=== PATIENT | female | born 1995 | race American Indian/Alaskan Native ===

== ENCOUNTER 2021-10-17 14:56 | Emergency (ER) | payer MEDICAID ==
[2021-10-17] MEDS ORDERED: ZIPRASIDONE MESYLATE 20 MG VIAL IM ONE (17:28)
[2021-10-17] MEDS ORDERED: WATER FOR INJ Sterile (PF) 10 ML ONE (17:29)
[2021-10-17 18:18] LABS: Hematocrit 35.6 % (30.3-42.9); Hemoglobin 12.4 gm/dl (10.1-14.3); Mean Corpuscular HGB Conc 35 % (30-34); Mean Corpuscular Volume 90 fl (79-97); Platelet Count 242 K/mm3 (140-440); Red Blood Count 3.96 M/mm3 (3.65-5.03); Red Cell Distribution Width 13.5 % (13.2-15.2)
[2021-10-17 19:08] LABS: BUN/Creatinine Ratio 11; Blood Urea Nitrogen 11 mg/dL (7-17); Calcium 9.8 mg/dL (8.4-10.2); Hemolysis Index 6
[2021-10-17 20:09] LABS: Bilirubin,Urine NEG (Negative); Blood,Urine MOD (Negative); Color,Urine Yellow (Yellow); Mucus,Urine FEW /HPF; Protein,Urine <15 mg/dL mg/dL (Negative); Urobilinogen,Urine < 2.0 mg/dL (<2.0)
[2021-10-17 20:18] LABS: Amphetamine Screen,Urine Negative; Benzodiazepines Screen,Urine Negative; Cannabinoid Screen,Urine Negative; Cocaine Screen,Urine Negative; Methadone Screen,Urine Negative; Opiate Screen,Urine Negative
[2021-10-17 22:28] LABS: Basophils % (Manual) 0 % (0.0-1.8); Eosinophils % (Manual) 0 % (0.0-4.3); Total Cells Counted 100
[2021-10-17 22:29] LABS: Platelet Estimate Consistent w Auto; RBC Morphology Normal
--- NOTE | 2021-10-18 00:11 | Emergency Department Report ---
ED Psych HPI - General Chief Complaint: Psych Stated Complaint: SI Time Seen by Provider: 10/17/21 17:28 Source: EMS Mode of arrival: Stretcher - History of Present Illness Initial Comments: Pt brought in by EMS with c/o SI/HO without plan MD Complaint: suicidal ideation, feels depressed -: days(s) Associated Psychiatric Symptoms: suicidal ideation History of same: No Quality: intermittent Improves With: none Worsens With: none - Related Data Home Medications Medication Instructions Recorded Confirmed Last Taken OLANZapine 20 mg PO DAILY 05/12/16 05/12/16 Unknown metFORMIN 500 mg PO BID 05/12/16 05/12/16 Unknown Allergies Allergy/AdvReac Type Severity Reaction Status Date / Time aripiprazole [From Abilify] Allergy Unknown Verified 01/17/16 08:15 shellfish derived Allergy Itching Verified 05/25/13 21:25 haloperidol [From Haldol] AdvReac Unknown Verified 07/19/15 21:44 haloperidol lactate AdvReac Unknown Verified 07/19/15 21:44 [From Haldol] lorazepam [From Ativan] AdvReac Unknown Verified 07/19/15 21:44 ED Review of Systems ROS: Stated complaint: SI Other details as noted in HPI Constitutional: denies: chills, fever Eyes: denies: eye pain, eye discharge, vision change ENT: denies: ear pain, throat pain Respiratory: denies: cough, shortness of breath, wheezing Cardiovascular: denies: chest pain, palpitations Endocrine: no symptoms reported Gastrointestinal: denies: abdominal pain, nausea, diarrhea Genitourinary: denies: urgency, dysuria, discharge Musculoskeletal: denies: back pain, joint swelling, arthralgia Skin: denies: rash, lesions Neurological: denies: headache, weakness, paresthesias Psychiatric: denies: anxiety, depression Hematological/Lymphatic: denies: easy bleeding, easy bruising ED Past Medical Hx - Past Medical History Hx Diabetes: Yes Hx Psychiatric Treatment: Yes (Bipolar/Schizophrenia/OCD) Additional medical history: bipolar/schizo/ocd - Surgical History Additional Surgical History: KIMBERLEY - Social History Smoking Status: Current Every Day Smoker Substance Use Type: Alcohol - Medications Home Medications: Home Medications Medication Instructions Recorded Confirmed Last Taken Type OLANZapine 20 mg PO DAILY 05/12/16 05/12/16 Unknown History metFORMIN 500 mg PO BID 05/12/16 05/12/16 Unknown History ED Physical Exam - General Limitations: No Limitations General appearance: alert, anxious - Head Head exam: Present: atraumatic, normocephalic - Eye Eye exam: Present: normal appearance - ENT ENT exam: Present: mucous membranes moist - Neck Neck exam: Present: normal inspection - Respiratory Respiratory exam: Present: normal lung sounds bilaterally. Absent: respiratory distress - Cardiovascular Cardiovascular Exam: Present: regular rate, normal rhythm. Absent: systolic murmur, diastolic murmur, rubs, gallop - GI/Abdominal GI/Abdominal exam: Present: soft, normal bowel sounds - Extremities Exam Extremities exam: Present: normal inspection - Back Exam Back exam: Present: normal inspection - Neurological Exam Neurological exam: Present: alert, oriented X3 - Psychiatric Psychiatric exam: Present: anxious, suicidal ideation - Skin Skin exam: Present: warm, dry, intact, normal color. Absent: rash ED Course Vital Signs 10/17/21 10/17/21 10/17/21 15:30 17:43 20:06 Temperature 98.4 F 98.3 F Pulse Rate 104 H 66 Respiratory 18 16 Rate Blood Pressure 123/66 138/83 [Right] O2 Sat by Pulse 98 98 98 Oximetry 10/18/21 14:13 Temperature 98.2 F Pulse Rate 80 Respiratory 18 Rate Blood Pressure 125/79 [Right] O2 Sat by Pulse 100 Oximetry ED Medical Decision Making - Lab Data Result diagrams: 10/17/21 17:51 10/17/21 17:51 Critical care attestation.: If time is entered above; I have spent that time in minutes in the direct care of this critically ill patient, excluding procedure time. ED Disposition Clinical Impression: Suicidal ideation Disposition: [address] [place] [address] Is pt being admited?: No Does the pt Need Aspirin: No Condition: Stable Referrals: THIAGO CORLEY MD [Primary Care Provider] - 3-5 Days
[2021-10-18] MEDS ORDERED: ZIPRASIDONE MESYLATE 20 MG VIAL IM ONE ×2 (10:09→16:10)
--- NOTE | 2021-10-18 10:45 | Consultation ---
History of Present Illness - Reason for Consult Consult date: 10/18/21 Reason for consult: Suicidal - History of Present Psychiatric Illness The patient is a 26 year old female with history of schizophrenia, and bipolar who presents to the ED with suicidal ideation. The patient was seen pacing and responding to internal stimuli. When asked why she came to the ED, the patient presents with inaudible mumble. The patient is not engaging with this telegraphic typewriter mechanic. PAST PSYCHIATRIC HISTORY: PAST MEDICAL HISTORY: None reported or document Family Psychiatric History: None reported or documented SOCIAL HISTORY REVIEW OF SYSTEMS Constitutional: Negative for weight loss ENT: Negative for stridor Respiratory: Negative for cough or hemoptysis All other systems reviewed and are negative MENTAL STATUS EXAMINATION Diagnoses: Schizophrenia Treatment Plan Continue Zyprexa 5mg po bid Trazodone 50mg po QHS PSYCHOTHERAPY: Supportive psychotherapy provided MEDICAL: Per primary team DELIRIUM PRECAUTIONS: Please re-orient patient frequently, keep lights on during the day, and minimize benzodiazepines and opiates as these medications could worsen patient's confusion. 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 Will follow. Thank you for the consult. Case staffed with Dr. Desai Medications and Allergies Medications and Allergies Allergies Allergy/AdvReac Type Severity Reaction Status Date / Time aripiprazole [From Abilify] Allergy Unknown Verified 01/17/16 08:15 shellfish derived Allergy Itching Verified 05/25/13 21:25 haloperidol [From Haldol] AdvReac Unknown Verified 07/19/15 21:44 haloperidol lactate AdvReac Unknown Verified 07/19/15 21:44 [From Haldol] lorazepam [From Ativan] AdvReac Unknown Verified 07/19/15 21:44 Home Medications Medication Instructions Recorded Confirmed Last Taken Type OLANZapine 20 mg PO DAILY 05/12/16 05/12/16 Unknown History metFORMIN 500 mg PO BID 05/12/16 05/12/16 Unknown History Mental Status Exam - Vital signs Last Vital Signs Temp 98.3 F 10/17/21 20:06 Pulse 66 10/17/21 20:06 Resp 16 10/17/21 20:06 BP 138/83 10/17/21 20:06 Pulse Ox 98 10/17/21 20:06 Results Result Diagrams: 10/17/21 17:51 10/17/21 17:51 Abnormal lab results 10/17/21 10/17/21 10/17/21 Range/Units 17:51 17:51 17:51 MCHC 35 H (30-34) % Salicylates < 0.3 L (2.8-20.0) mg/dL Acetaminophen 5.0 L (10.0-30.0) ug/mL All other labs normal.
--- NOTE | 2021-10-18 12:12 | Event Note ---
Date: 10/18/21 Diagnoses: Schizophrenia Treatment Plan Continue Zyprexa 5mg po bid Trazodone 50mg po QHS PSYCHOTHERAPY: Supportive psychotherapy provided MEDICAL: Per primary team DELIRIUM PRECAUTIONS: Please re-orient patient frequently, keep lights on during the day, and minimize benzodiazepines and opiates as these medications could worsen patient's confusion. 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 Will follow. Thank you for the consult. Case staffed with Dr. Desai I have seen the patient myself and appreciate psychiatric recommendation. Patient remained hemodynamically stable and afebrile.
[2021-10-18] MEDS: traZODone 50 MG TAB PO SCH (22:00)
[2021-10-19] MEDS ORDERED: ZIPRASIDONE MESYLATE 20 MG VIAL IM ONE (05:35)
--- NOTE | 2021-10-19 11:06 | Progress Note ---
Subjective - Reason for Consult Consult date: 10/19/21 Reason for consult: suicidal ideation - Chief Complaint Chief complaint: The patient was seen this morning. She continues to endorse depression and suicidal ideation with no plan. PAST PSYCHIATRIC HISTORY: PAST MEDICAL HISTORY: None reported or document Family Psychiatric History: None reported or documented SOCIAL HISTORY REVIEW OF SYSTEMS Constitutional: Negative for weight loss ENT: Negative for stridor Respiratory: Negative for cough or hemoptysis All other systems reviewed and are negative MENTAL STATUS EXAMINATION Diagnoses: Schizophrenia Treatment Plan Continue 1013 Zyprexa 5mg po bid Trazodone 50mg po QHS PSYCHOTHERAPY: Supportive psychotherapy provided MEDICAL: Per primary team DELIRIUM PRECAUTIONS: Please re-orient patient frequently, keep lights on during the day, and minimize benzodiazepines and opiates as these medications could worsen patient's confusion. 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 Will follow. Thank you for the consult. Case staffed with Dr. Desai Medications and Allergies Mental Status Exam - Vital signs Last Vital Signs Temp 99.3 F 10/18/21 19:53 Pulse 77 10/18/21 19:53 Resp 16 10/18/21 19:53 BP 143/86 10/18/21 19:53 Pulse Ox 100 10/18/21 20:13
--- NOTE | 2021-10-19 11:44 | Emergency Department Report ---
Blank Doc - Documentation Documentation: S: Patient reportedly pacing and experiencing auditory hallucinations this gypsy mathews. No other events reported overnight O: Vital Signs - 24 hr 10/18/21 10/18/21 10/18/21 14:13 19:53 20:13 Temperature 98.2 F 99.3 F Pulse Rate 80 77 Respiratory 18 16 Rate Blood Pressure 125/79 143/86 [Right] O2 Sat by Pulse 100 98 100 Oximetry 10/19/21 10/19/21 09:00 11:29 Temperature 97.8 F Pulse Rate 64 64 Respiratory 18 18 Rate Blood Pressure 104/64 104/64 [Right] O2 Sat by Pulse 99 100 Oximetry 8: Schizophrenia PE: 1013/awaiting inpatient psych
[2021-10-19] MEDS: ZIPRASIDONE MESYLATE 20 MG VIAL IM PRN (11:45)
[2021-10-19] MEDS ORDERED: DIVALPROEX DR 250 MG TAB PO SCH (12:00)
--- NOTE | 2021-10-20 10:17 | Progress Note ---
Subjective - Reason for Consult Consult date: 10/20/21 Reason for consult: suicidal - Chief Complaint Chief complaint: The patient was seen this morning. She is labile; she was observed making loud and weird sounds. PAST PSYCHIATRIC HISTORY: PAST MEDICAL HISTORY: None reported or document Family Psychiatric History: None reported or documented SOCIAL HISTORY REVIEW OF SYSTEMS Constitutional: Negative for weight loss ENT: Negative for stridor Respiratory: Negative for cough or hemoptysis All other systems reviewed and are negative MENTAL STATUS EXAMINATION Diagnoses: Schizophrenia Treatment Plan Continue 1013 Zyprexa 10mg po bid Depakote 500mg po BID Trazodone 50mg po QHS PSYCHOTHERAPY: Supportive psychotherapy provided MEDICAL: Per primary team DELIRIUM PRECAUTIONS: Please re-orient patient frequently, keep lights on during the day, and minimize benzodiazepines and opiates as these medications could worsen patient's confusion. PLANT SCIENTIST: Per medical team DISPOSITION: Recommend acute psychiatric inpatient treatment. Will follow. Thank you for the consult. Case staffed with Dr. Desai Medications and Allergies Mental Status Exam - Vital signs Last Vital Signs Temp 98.2 F 10/20/21 10:12 Pulse 89 10/20/21 10:12 Resp 20 10/20/21 10:12 BP 123/62 10/20/21 10:12 Pulse Ox 98 10/20/21 10:12
[2021-10-20] MEDS: DIVALPROEX DR 500 MG TAB PO SCH ×2 (11:18→22:00)
--- NOTE | 2021-10-20 12:52 | Emergency Department Report ---
Blank Doc - Documentation Documentation: A: No events reported overnight O: Vital Signs - 8 hr 10/20/21 10/20/21 10:12 10:18 Temperature 98.2 F Pulse Rate 89 Respiratory 20 Rate Blood Pressure 123/62 [Right] O2 Sat by Pulse 98 99 Oximetry A: Schizophrenia PE: 1013/awaiting inpatient psych
[2021-10-20] MEDS: ZIPRASIDONE MESYLATE 20 MG VIAL IM PRN (18:22)
[2021-10-20] MEDS: diphenhydrAMINE 50 MG/ML VIAL IM PRN (19:27)
[2021-10-20] MEDS: LORazepam 2 MG/ML VIAL IM PRN (19:28)
[2021-10-20] MEDS: traZODone 50 MG TAB PO SCH (22:00)
[2021-10-21] MEDS: DIVALPROEX DR 500 MG TAB PO SCH (09:42)
--- NOTE | 2021-10-21 11:48 | Event Note ---
Date: 10/21/21 (11:48 am) S: patient here / having suicidal ideations. Patient seen by psych and inpatient psych admission recommended. No issues overnight.No new complaints this morning. O: Gen: pt in nad; awake, alert HEENT: MMM; airway patent Chest: good air entry, nmnl I:E, CTAB, no use of DEVANG Heart: RRR; no rub or gallop Ext: no LE edema; non tender calves; neg Rocio's sign bilaterally A/P: - Suicidal ideations - continue current management - inpatient psych transfer upon acceptance.
--- NOTE | 2021-10-21 12:41 | Progress Note ---
Subjective - Reason for Consult Consult date: 10/21/21 Reason for consult: SI - Chief Complaint Chief complaint: The patient was seen this morning. She was sen pacing, mumbling and responding to internal stimuli. PAST PSYCHIATRIC HISTORY: PAST MEDICAL HISTORY: None reported or document Family Psychiatric History: None reported or documented SOCIAL HISTORY REVIEW OF SYSTEMS Constitutional: Negative for weight loss ENT: Negative for stridor Respiratory: Negative for cough or hemoptysis All other systems reviewed and are negative MENTAL STATUS EXAMINATION Diagnoses: Schizophrenia Treatment Plan Continue 1013 Zyprexa 10mg po bid Depakote 500mg po BID Trazodone 50mg po QHS PSYCHOTHERAPY: Supportive psychotherapy provided MEDICAL: Per primary team DELIRIUM PRECAUTIONS: Please re-orient patient frequently, keep lights on during the day, and minimize benzodiazepines and opiates as these medications could worsen patient's confusion. SENIOR REPORT DEVELOPER: Per medical team DISPOSITION: Recommend acute psychiatric inpatient treatment. Will follow. Thank you for the consult. Case staffed with Dr. Desai Medications and Allergies Mental Status Exam - Vital signs Last Vital Signs Temp 99.1 F 10/21/21 07:45 Pulse 95 H 10/21/21 07:45 Resp 16 10/21/21 07:45 BP 134/79 10/21/21 07:45 Pulse Ox 99 10/21/21 07:45
--- NOTE | 2021-10-22 10:57 | Progress Note ---
Subjective - Reason for Consult Consult date: 10/22/21 Reason for consult: psychosis - Chief Complaint Chief complaint: The patient was seen this morning. She continues to present with disorganized thoughts. PAST PSYCHIATRIC HISTORY: PAST MEDICAL HISTORY: None reported or document Family Psychiatric History: None reported or documented SOCIAL HISTORY REVIEW OF SYSTEMS Constitutional: Negative for weight loss ENT: Negative for stridor Respiratory: Negative for cough or hemoptysis All other systems reviewed and are negative MENTAL STATUS EXAMINATION Diagnoses: Schizophrenia Treatment Plan Continue 1013 Zyprexa 10mg po bid Depakote 500mg po BID Trazodone 50mg po QHS PSYCHOTHERAPY: Supportive psychotherapy provided MEDICAL: Per primary team DELIRIUM PRECAUTIONS: Please re-orient patient frequently, keep lights on during the day, and minimize benzodiazepines and opiates as these medications could worsen patient's confusion. 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 Will follow. Thank you for the consult. Case staffed with Dr. Desai Medications and Allergies Mental Status Exam - Vital signs Last Vital Signs Temp 98.9 F 10/22/21 09:25 Pulse 78 10/22/21 09:25 Resp 20 10/22/21 09:25 BP 124/70 10/22/21 09:25 Pulse Ox 100 10/22/21 09:25
--- NOTE | 2021-10-22 13:54 | Event Note ---
Date: 10/22/21 (13:53) S: patient here / having suicidal ideations. Patient seen by psych and inpatient psych admission recommended. No issues overnight.No new complaints this morning. O: Gen: pt in nad; awake, alert HEENT: MMM; airway patent Chest: good air entry, nmnl I:E, CTAB, no use of DEVANG Heart: RRR; no rub or gallop Ext: no LE edema; non tender calves bilaterally A/P: - Suicidal ideations - continue current management - inpatient psych transfer upon acceptance.
[2021-10-22] MEDS: LORazepam 2 MG/ML VIAL IM PRN (14:17)
[2021-10-22] MEDS: ZIPRASIDONE MESYLATE 20 MG VIAL IM PRN ×2 (14:17→21:04)
[2021-10-22] MEDS: diphenhydrAMINE 50 MG/ML VIAL IM PRN (21:03)
[2021-10-22] MEDS: traZODone 50 MG TAB PO SCH (23:05)
[2021-10-22] MEDS: DIVALPROEX DR 500 MG TAB PO SCH (23:05)
--- NOTE | 2021-10-23 09:10 | Progress Note ---
Subjective Date of service: 10/23/21 Principal diagnosis: Schizophrenia Subjective Comment: The patient was seen today. She is in the seclusion room. She is awake. She is responding to internal stimuli. She is acting bizarrely. She is staring at me moving her mouth, but no words are coming out. I ask her if she can speak, she continues to move her mouth as if she's speaking. The nurse note states the patient is running the hallway and talking loudly, and having auditory hallucinations. Will increase trazodone to induce sleep. Will also start prn geodon for agitation and if refusal of oral antipsychotic. REVIEW OF SYSTEMS Unable to assess MENTAL STATUS EXAMINATION Unable to assess Diagnoses Schizophrenia Treatment Plan 1013 Zyprexa 10mg po bid Depakote 500mg po BID Increase Trazodone 75mg po QHS Start Geodon 20mg IM q6h prn agitation and refusal of po antipsychotic PSYCHOTHERAPY: Supportive psychotherapy provided MEDICAL: Per primary team DELIRIUM PRECAUTIONS: Please re-orient patient frequently, keep lights on during the day, and minimize benzodiazepines and opiates as these medications could worsen patient's confusion. 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 Will follow. Thank you for the consult. Case staffed with Dr. Desai Medications and Allergies Allergies Allergy/AdvReac Type Severity Reaction Status Date / Time aripiprazole [From Abilify] Allergy Unknown Verified 01/17/16 08:15 shellfish derived Allergy Itching Verified 05/25/13 21:25 haloperidol [From Haldol] AdvReac Unknown Verified 07/19/15 21:44 haloperidol lactate AdvReac Unknown Verified 07/19/15 21:44 [From Haldol] lorazepam [From Ativan] AdvReac Unknown Verified 07/19/15 21:44 Home Medications Medication Instructions Recorded Confirmed Last Taken Type OLANZapine 20 mg PO DAILY 05/12/16 05/12/16 Unknown History metFORMIN 500 mg PO BID 05/12/16 05/12/16 Unknown History Active Meds: Active Medications Diphenhydramine HCl (Diphenhydramine 50 Mg/Ml Vial) 50 mg IM Q6H PRN PRN Reason: Agitation Last Admin: 10/22/21 21:03 Dose: 50 mg Divalproex Sodium (Divalproex Dr 500 Mg Tab) 500 mg PO BID GEOVANNI Last Admin: 10/22/21 23:05 Dose: Not Given Lorazepam (Lorazepam 2 Mg/Ml Vial) 2 mg IM Q8H PRN PRN Reason: Agitation Last Admin: 10/22/21 14:17 Dose: 2 mg Olanzapine (Olanzapine 10 Mg Tab) 10 mg PO BID [facility] Last Admin: 10/22/21 23:05 Dose: Not Given Trazodone HCl (Trazodone 50 Mg Tab) 50 mg PO QHS [facility] Last Admin: 10/22/21 23:05 Dose: Not Given Results - Results Labs/Vitals: Laboratory Last Values WBC 9.7 K/mm3 (4.5-11.0) 10/17/21 17:51 RBC 3.96 M/mm3 (3.65-5.03) 10/17/21 17:51 Hgb 12.4 gm/dl (10.1-14.3) 10/17/21 17:51 Hct 35.6 % (30.3-42.9) 10/17/21 17:51 MCV 90 fl (79-97) 10/17/21 17:51 MCH 31 pg (28-32) 10/17/21 17:51 MCHC 35 % (30-34) H 10/17/21 17:51 RDW 13.5 % (13.2-15.2) 10/17/21 17:51 Plt Count 242 K/mm3 (140-440) 10/17/21 17:51 Lymph % (Auto) Not Reportable 10/17/21 17:51 [place] % (Auto) Not Reportable 10/17/21 17:51 Eos % (Auto) Not Reportable 10/17/21 17:51 Baso % (Auto) Not Reportable 10/17/21 17:51 Lymph # (Auto) Not Reportable 10/17/21 17:51 [place] # (Auto) Not Reportable 10/17/21 17:51 Eos # (Auto) Not Reportable 10/17/21 17:51 Baso # (Auto) Not Reportable 10/17/21 17:51 Add Manual Diff Complete 10/17/21 17:51 Total Counted 100 10/17/21 17:51 Seg Neuts % (Manual) 59.0 % (40.0-70.0) 10/17/21 17:51 Band Neutrophils % 0 % 10/17/21 17:51 Lymphocytes % (Manual) 34.0 % (13.4-35.0) 10/17/21 17:51 Reactive Lymphs % (Man) 0 % 10/17/21 17:51 Monocytes % (Manual) 7.0 % (0.0-7.3) 10/17/21 17:51 Eosinophils % (Manual) 0 % (0.0-4.3) 10/17/21 17:51 Basophils % (Manual) 0 % (0.0-1.8) 10/17/21 17:51 Metamyelocytes % 0 % 10/17/21 17:51 Myelocytes % 0 % 10/17/21 17:51 Promyelocytes % 0 % 10/17/21 17:51 Blast Cells % 0 % 10/17/21 17:51 Nucleated RBC % Not Reportable 10/17/21 17:51 Seg Neutrophils # Not Reportable 10/17/21 17:51 Seg Neutrophils # Man 5.7 K/mm3 (1.8-7.7) 10/17/21 17:51 Band Neutrophils # 0.0 K/mm3 10/17/21 17:51 Lymphocytes # (Manual) 3.3 K/mm3 (1.2-5.4) 10/17/21 17:51 Abs React Lymphs (Man) 0.0 K/mm3 10/17/21 17:51 Monocytes # (Manual) 0.7 K/mm3 (0.0-0.8) 10/17/21 17:51 Eosinophils # (Manual) 0.0 K/mm3 (0.0-0.4) 10/17/21 17:51 Basophils # (Manual) 0.0 K/mm3 (0.0-0.1) 10/17/21 17:51 Metamyelocytes # 0.0 K/mm3 10/17/21 17:51 Myelocytes # 0.0 K/mm3 10/17/21 17:51 Promyelocytes # 0.0 K/mm3 10/17/21 17:51 Blast Cells # 0.0 K/mm3 10/17/21 17:51 WBC Morphology Not Reportable 10/17/21 17:51 Hypersegmented Neuts Not Reportable 10/17/21 17:51 Hyposegmented Neuts Not Reportable 10/17/21 17:51 Hypogranular Neuts Not Reportable 10/17/21 17:51 Smudge Cells Not Reportable 10/17/21 17:51 Toxic Granulation Not Reportable 10/17/21 17:51 Toxic Vacuolation Not Reportable 10/17/21 17:51 Dohle Bodies Not Reportable 10/17/21 17:51 Pelger-Huet Anomaly Not Reportable 10/17/21 17:51 Cecy Rods Not Reportable 10/17/21 17:51 Platelet Estimate Consistent w auto 10/17/21 17:51 Clumped Platelets Not Reportable 10/17/21 17:51 Plt Clumps, EDTA Not Reportable 10/17/21 17:51 Large Platelets Not Reportable 10/17/21 17:51 Giant Platelets Not Reportable 10/17/21 17:51 Platelet Satelliting Not Reportable 10/17/21 17:51 Plt Morphology Comment Not Reportable 10/17/21 17:51 RBC Morphology Normal 10/17/21 17:51 Dimorphic RBCs Not Reportable 10/17/21 17:51 Polychromasia Not Reportable 10/17/21 17:51 Hypochromasia Not Reportable 10/17/21 17:51 Poikilocytosis Not Reportable 10/17/21 17:51 Anisocytosis Not Reportable 10/17/21 17:51 Microcytosis Not Reportable 10/17/21 17:51 Macrocytosis Not Reportable 10/17/21 17:51 Spherocytes Not Reportable 10/17/21 17:51 Pappenheimer Bodies Not Reportable 10/17/21 17:51 Sickle Cells Not Reportable 10/17/21 17:51 Target Cells Not Reportable 10/17/21 17:51 Tear Drop Cells Not Reportable 10/17/21 17:51 Ovalocytes Not Reportable 10/17/21 17:51 Helmet Cells Not Reportable 10/17/21 17:51 [place] Bodies Not Reportable 10/17/21 17:51 [place] Rings Not Reportable 10/17/21 17:51 [place]oli Cells Not Reportable 10/17/21 17:51 Bite Cells Not Reportable 10/17/21 17:51 Crenated Cell Not Reportable 10/17/21 17:51 Elliptocytes Not Reportable 10/17/21 17:51 Acanthocytes (Spur) Not Reportable 10/17/21 17:51 Rouleaux Not Reportable 10/17/21 17:51 Hemoglobin C Crystals Not Reportable 10/17/21 17:51 Schistocytes Not Reportable 10/17/21 17:51 Malaria parasites Not Reportable 10/17/21 17:51 Vinicio Bodies Not Reportable 10/17/21 17:51 Hem Pathologist Commnt No 10/17/21 17:51 Sodium 138 mmol/L (137-145) 10/17/21 17:51 Potassium 4.0 mmol/L (3.6-5.0) 10/17/21 17:51 Chloride 103.8 mmol/L (98-107) 10/17/21 17:51 Carbon Dioxide 22 mmol/L (22-30) 10/17/21 17:51 Anion Gap 16 mmol/L 10/17/21 17:51 BUN 11 mg/dL (7-17) 10/17/21 17:51 Creatinine 1.0 mg/dL (0.6-1.2) 10/17/21 17:51 Estimated GFR > 60 ml/min 10/17/21 17:51 BUN/Creatinine Ratio 11 % 10/17/21 17:51 Glucose 92 mg/dL (65-100) 10/17/21 17:51 Calcium 9.8 mg/dL (8.4-10.2) 10/17/21 17:51 Urine Color Yellow (Yellow) 10/17/21 Unknown Urine Turbidity Clear (Clear) 10/17/21 Unknown Urine pH 5.0 (5.0-7.0) 10/17/21 Unknown Ur Specific [place] 1.021 (1.003-1.030) 10/17/21 Unknown Urine Protein <15 mg/dl mg/dL (Negative) 10/17/21 Unknown Urine Glucose (UA) Neg mg/dL (Negative) 10/17/21 Unknown Urine Ketones Neg mg/dL (Negative) 10/17/21 Unknown Urine Blood Mod (Negative) 10/17/21 Unknown Urine Nitrite Neg (Negative) 10/17/21 Unknown Urine Bilirubin Neg (Negative) 10/17/21 Unknown Urine Urobilinogen < 2.0 mg/dL (<2.0) 10/17/21 Unknown Ur Leukocyte Esterase Neg (Negative) 10/17/21 Unknown Urine WBC (Auto) 1.0 /HPF (0.0-6.0) 10/17/21 Unknown Urine RBC (Auto) 1.0 /HPF (0.0-6.0) 10/17/21 Unknown U Epithel Cells (Auto) 5.0 /HPF (0-13.0) 10/17/21 Unknown Urine Mucus Few /HPF 10/17/21 Unknown Salicylates < 0.3 mg/dL (2.8-20.0) L 10/17/21 17:51 Urine Opiates Screen Negative 10/17/21 Unknown Urine Methadone Screen Negative 10/17/21 Unknown Acetaminophen 5.0 ug/mL (10.0-30.0) L 10/17/21 17:51 Ur Barbiturates Screen Negative 10/17/21 Unknown Ur Phencyclidine Scrn Negative 10/17/21 Unknown Ur Amphetamines Screen Negative 10/17/21 Unknown U Benzodiazepines Scrn Negative 10/17/21 Unknown Urine Cocaine Screen Negative 10/17/21 Unknown U Marijuana (THC) Screen Negative 10/17/21 Unknown Drugs of Abuse Note Disclamer 10/17/21 Unknown SARS-CoV-2 (PCR) Negative (Negative) 10/18/21 10:22 Last Vital Signs Temp 98.4 F 10/22/21 20:02 Pulse 90 10/22/21 20:02 Resp 16 10/22/21 20:02 BP 128/63 10/22/21 20:02 Pulse Ox 100 10/22/21 20:02
[2021-10-23] MEDS ORDERED: ZIPRASIDONE MESYLATE 20 MG VIAL IM PRN (10:00)
[2021-10-23] MEDS: DIVALPROEX DR 500 MG TAB PO SCH ×3 (11:38→22:00)
--- NOTE | 2021-10-23 13:28 | Emergency Department Report ---
Blank Doc - Documentation Documentation: 26 yo on 1013 intermittently uncooperative with po meds, IM meds ordered chart and vitals reviewed placement pending.
[2021-10-23] MEDS: traZODone 50 MG TAB PO SCH (22:00)
--- NOTE | 2021-10-24 09:05 | Progress Note ---
Subjective - Reason for Consult Consult date: 10/24/21 Reason for consult: schizophrenia - Chief Complaint Chief complaint: The patient was seen today. She is in the seclusion room yelling, and rolling around on the floor erratically. She is heard talking loudly to people not there. When I open the door to speak with her, she stops speaking and refuses to talk to me. REVIEW OF SYSTEMS Unable to assess MENTAL STATUS EXAMINATION Unable to assess Diagnoses Schizophrenia Treatment Plan 1013 Start Klonopin 0.5mg po BID x 3 days Increase Depakote 500mg po TID Continue Geodon PO Start Geodon 20mg IM q6h prn agitation and refusal of po antipsychotic PSYCHOTHERAPY: Supportive psychotherapy provided MEDICAL: Per primary team DELIRIUM PRECAUTIONS: Please re-orient patient frequently, keep lights on during the day, and minimize benzodiazepines and opiates as these medications could worsen patient's confusion. 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 Will follow. Thank you for the consult. Case staffed with Dr. Desai Medications and Allergies Mental Status Exam - Vital signs Last Vital Signs Temp 98.4 F 10/23/21 20:37 Pulse 91 H 10/23/21 20:37 Resp 18 10/23/21 20:37 BP 134/71 10/23/21 20:37 Pulse Ox 100 10/23/21 20:37
--- NOTE | 2021-10-24 11:37 | Emergency Department Report ---
Blank Doc - Documentation Documentation: 26-year-old female currently on 1013 for acute psychosis. Chart reviewed. Co ntinues to exhibited psychotic uncooperative behavior and requiring seclusion. Meds ordered by psych. Placement pending
[2021-10-24] MEDS: clonazePAM 0.5 MG TAB PO SCH ×2 (13:08→22:00)
[2021-10-24] MEDS: DIVALPROEX DR 500 MG TAB PO SCH ×2 (18:21→20:00)
[2021-10-24] MEDS: traZODone 50 MG TAB PO SCH (22:00)
[2021-10-25] MEDS: DIVALPROEX DR 500 MG TAB PO SCH ×3 (08:30→20:00)
[2021-10-25] MEDS: clonazePAM 0.5 MG TAB PO SCH (09:46)
--- NOTE | 2021-10-25 11:03 | Progress Note ---
Subjective - Reason for Consult Consult date: 10/25/21 Reason for consult: psychosis - Chief Complaint Chief complaint: The patient was seen today. She is in the seclusion room. She is mumbling and making incomprehensible sounds. The patient refused oral antipsychotics. She should be given IM prn if refusing oral antipsychotics. This help ensure improvement of her mental condition. REVIEW OF SYSTEMS Unable to assess MENTAL STATUS EXAMINATION Unable to assess Diagnoses Schizophrenia Treatment Plan 1013 Klonopin 0.5mg po BID x 3 days Depakote 500mg po TID Continue Geodon PO Geodon 20mg IM q6h prn agitation and refusal of po antipsychotic PSYCHOTHERAPY: Supportive psychotherapy provided MEDICAL: Per primary team DELIRIUM PRECAUTIONS: Please re-orient patient frequently, keep lights on during the day, and minimize benzodiazepines and opiates as these medications could worsen patient's confusion. [employer]: Per medical team DISPOSITION: Recommend acute psychiatric inpatient treatment. Will follow. Thank you for the consult. Case staffed with Dr. Desai Medications and Allergies Mental Status Exam - Vital signs Last Vital Signs Temp 99.3 F 10/24/21 09:00 Pulse 94 H 10/24/21 09:00 Resp 16 10/24/21 09:00 BP 131/71 10/24/21 09:00 Pulse Ox 100 10/24/21 19:30
--- NOTE | 2021-10-25 11:23 | Event Note ---
Date: 10/25/21 Patient with no acute event overnight. Vital signs stable. Labs reviewed and is unremarkable. Waiting for inpatient psychiatric admission.
[2021-10-25] MEDS: traZODone 50 MG TAB PO SCH (22:00)
[2021-10-26] MEDS: clonazePAM 0.5 MG TAB PO SCH (08:28)
--- NOTE | 2021-10-26 13:16 | Progress Note ---
Subjective - Reason for Consult Consult date: 10/26/21 Reason for consult: psychosis - Chief Complaint Chief complaint: The patient was seen today. She has improved significantly. She is calm and cooperative. She actually was able to talk to me and answer questions appropriately. The patient says she's doing good. She says "I was depressed but not any more. I can go back to my longterm now." She denies SI/HI or any fear of endangerment. She says "I don't feel in fear there, but sometimes people there makes threats to me." She denies hallucinations of any kind. The patient also says she slept well. She says most of her family lives in [place]. But the patient says she has friends here. She says "I just eat and sleep mostly, but sometimes me and my friends drink." She then says "we are of age and old enough to drink." REVIEW OF SYSTEMS Constitutional: Negative for weight loss ENT: Negative for stridor Respiratory: Negative for cough or hemoptysis All other systems reviewed and are negative MENTAL STATUS EXAMINATION General Appearance and Behavior: Age appropriate, good hygiene, wearing appropriate clothes, fair eye contact, calm, cooperative Cooperation: Cooperative Psychomotor Behavior: Psychomotor normal Mood: good Affect and affective range: congruent with stated mood Thought Process: Goal directed Thought Content: Reality oriented Speech: normal tone and pace Suicidal Ideation: Denies Homicidal Ideation: Denies Hallucinations: Denies Delusions: None elicited Impulse Control: Limited Insight and Judgment: Limited insight and judgment Memory: Limited Attention: attentive Orientation: Alert, oriented Diagnoses Schizophrenia Treatment Plan d/c 1013 Depakote 500mg po TID Zyprexa 10mg po BID Trazodon 75mg po qhs PSYCHOTHERAPY: Supportive psychotherapy provided MEDICAL: Per primary team DELIRIUM PRECAUTIONS: Please re-orient patient frequently, keep lights on during the day, and minimize benzodiazepines and opiates as these medications could worsen patient's confusion. 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 The patient understands that if SI/HI arise she is to seek immediate assistance The tobacco conditioner to give the patient all necessary resources for outpatient psychiatry The patient to follow up with outpatient psych in 7 to 14 days upon discharge Will sign off. Thank you for the consult. Case staffed with Dr. Desai Medications and Allergies Mental Status Exam - Vital signs Last Vital Signs Temp 98.6 F 10/26/21 09:16 Pulse 70 10/26/21 09:16 Resp 18 10/26/21 09:16 BP 118/53 10/26/21 09:16 Pulse Ox 96 10/26/21 09:16
--- NOTE | 2021-10-26 13:35 | Event Note ---
Date: 10/26/21 Patient reassessed by mental health and appears to be doing much better today. Recommended 1013 ED discontinued and patient discharged with outpatient psychiatric follow-up in 1 to 2 weeks.
[2021-10-26] MEDS: DIVALPROEX DR 500 MG TAB PO SCH (20:00)
[2021-10-26] MEDS: traZODone 50 MG TAB PO SCH (22:00)
[2021-10-27] MEDS: clonazePAM 0.5 MG TAB PO SCH (09:34)
--- NOTE | 2021-10-27 10:23 | Progress Note ---
Subjective - Reason for Consult Consult date: 10/27/21 Reason for consult: psychosis - Chief Complaint Chief complaint: The patient was seen today. She was cleared yesterday after evaluating her and she appeared to be significantly better. Later that day the patient started acting bizarrely and hallucinating as reported by the mental health supervisor cold rolling. The patient not discharge. Today upon evaluating the patient, she is not making any sense and difficult to follow. She says she's doing good, but then starts mumbling incomprehensibly. Will start seroquel to augment the Olanzapine. REVIEW OF SYSTEMS Constitutional: Negative for weight loss ENT: Negative for stridor Respiratory: Negative for cough or hemoptysis All other systems reviewed and are negative MENTAL STATUS EXAMINATION General Appearance and Behavior: Age appropriate, good hygiene, wearing appropriate clothes, fair eye contact, calm, cooperative Cooperation: Cooperative Psychomotor Behavior: Psychomotor normal Mood: good Affect and affective range: congruent with stated mood Thought Process: disorganized Thought Content: Reality oriented Speech: normal tone and pace Suicidal Ideation: Denies Homicidal Ideation: Denies Hallucinations: Denies Delusions: None elicited Impulse Control: Limited Insight and Judgment: Limited insight and judgment Memory: Limited Attention: attentive Orientation: Alert, oriented Diagnoses Schizophrenia Treatment Plan 1013 Start Seroquel 25mg po daily Depakote 500mg po TID Zyprexa 10mg po BID Trazodon 75mg po qhs PSYCHOTHERAPY: Supportive psychotherapy provided MEDICAL: Per primary team DELIRIUM PRECAUTIONS: Please re-orient patient frequently, keep lights on during the day, and minimize benzodiazepines and opiates as these medications could worsen patient's confusion. 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 Will follow. Thank you for the consult. Case staffed with Dr. Desai Mental Status Exam - Vital signs Last Vital Signs Temp 98.6 F 10/26/21 09:16 Pulse 70 10/26/21 09:16 Resp 18 10/26/21 09:16 BP 118/53 10/26/21 09:16 Pulse Ox 96 10/26/21 09:16
[2021-10-27] MEDS ORDERED: QUEtiapine 25 MG TAB PO SCH (11:00)
[2021-10-27] MEDS: DIVALPROEX DR 500 MG TAB PO SCH ×2 (12:49→20:00)
--- NOTE | 2021-10-27 18:35 | Emergency Department Report ---
Blank Doc - Documentation Documentation: S: No events reported overnight O: Vital Signs - 8 hr 10/27/21 13:00 Temperature 98.2 F Pulse Rate 89 Respiratory 20 Rate Blood Pressure 136/88 [Right] O2 Sat by Pulse 99 Oximetry A: Schizophrenia P: 1013/awaiting inpatient psych
[2021-10-27] MEDS: traZODone 50 MG TAB PO SCH (22:00)
--- NOTE | 2021-10-28 12:24 | Progress Note ---
Subjective - Reason for Consult Consult date: 10/28/21 Reason for consult: psychosis - Chief Complaint Chief complaint: The patient was seen today. The patient has periods where she can communicate and answer questions appropriately. She verbalizes feeling better. She asked if I could call her mother. I called the number the patient gave me at bedside, there was no answer. I asked the patient was she ever diagnosed with any developmental delays or autism. She replies "no, do I act autistic." The patient says "I just like to be to myself a lot." She denies SI/HI. She says "I never had that." When asking about hallucinations, she denies at present, but says "sometimes." The patient is in seclusion. I ask the staff to take her out and see how she does. When I later went back to check on the patient, staff states they had to put her back in seclusion because she was agitated and hallucinating. REVIEW OF SYSTEMS Constitutional: Negative for weight loss ENT: Negative for stridor Respiratory: Negative for cough or hemoptysis All other systems reviewed and are negative MENTAL STATUS EXAMINATION General Appearance and Behavior: Age appropriate, good hygiene, wearing appropriate clothes, fair eye contact, calm, cooperative Cooperation: Cooperative Psychomotor Behavior: Psychomotor normal Mood: good Affect and affective range: congruent with stated mood Thought Process: disorganized Thought Content: Reality oriented Speech: normal tone and pace Suicidal Ideation: Denies Homicidal Ideation: Denies Hallucinations: Denies Delusions: None elicited Impulse Control: Limited Insight and Judgment: Limited insight and judgment Memory: Limited Attention: attentive Orientation: Alert, oriented Diagnoses Schizophrenia Treatment Plan 1013 Increase Seroquel 150mg po qam, 300mg po qhs Continue Depakote 500mg po TID Continue Zyprexa 10mg po BID Continue Trazodon 75mg po qhs PSYCHOTHERAPY: Supportive psychotherapy provided MEDICAL: Per primary team DELIRIUM PRECAUTIONS: Please re-orient patient frequently, keep lights on during the day, and minimize benzodiazepines and opiates as these medications could worsen patient's confusion. 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 Will follow. Thank you for the consult. Case staffed with Dr. Desai Mental Status Exam - Vital signs Last Vital Signs Temp 97.2 F L 10/28/21 10:14 Pulse 81 10/28/21 10:14 Resp 18 10/28/21 10:14 BP 92/50 10/28/21 10:14 Pulse Ox 97 10/28/21 10:14
--- NOTE | 2021-10-28 12:55 | Event Note ---
Date: 10/28/21 The patient was evaluated in the emergency department for symptoms described in the history of present illness. He/she was evaluated in the context of the global COVID-19 pandemic, which necessitated consideration that the patient might be at risk for infection with the virus that causes COVID-19. Institutional protocols and algorithms that pertain to the evaluation of patients at risk for COVID-19 are in a state of rapid change based on information released by regulatory bodies including the CDC and federal and state organizations. These policies and algorithms were followed during the patient's care in the emergency department. Please note that these policies, procedures and recommendations changed on a rapid basis. Laboratory studies, vital signs, nursing documentation, ER documentation, and psychiatric documentation are reviewed and appreciated. Nursing team reports no acute events this morning or concerns. The patient is awake and not in any acute distress The patient was deemed medically suitable for psychiatric disposition and placement during her initial ER evaluation. The patient continues to remain medically suitable for psychiatric placement and disposition. sHe is currently pending psychiatric placement. A test is not resulted, so have ordered a test. The ER will follow along as the patient provides this test Vital Signs 10/17/21 10/17/21 10/17/21 15:30 17:43 20:06 Temperature 98.4 F 98.3 F Pulse Rate 104 H 66 Respiratory 18 16 Rate Blood Pressure 123/66 138/83 [Right] O2 Sat by Pulse 98 98 98 Oximetry 10/18/21 10/18/21 10/18/21 10:41 14:13 19:53 Temperature 98.2 F 99.3 F Pulse Rate 80 77 Respiratory 18 16 Rate Blood Pressure 125/79 143/86 [Right] O2 Sat by Pulse 98 100 98 Oximetry 10/18/21 10/19/21 10/19/21 20:13 09:00 11:29 Temperature 97.8 F Pulse Rate 64 64 Respiratory 18 18 Rate Blood Pressure 104/64 104/64 [Right] O2 Sat by Pulse 100 99 100 Oximetry 10/19/21 10/20/21 10/20/21 20:52 04:15 10:12 Temperature 99.3 F 98.7 F 98.2 F Pulse Rate 72 73 89 Respiratory 18 18 20 Rate Blood Pressure 100/53 114/84 123/62 [Right] O2 Sat by Pulse 98 99 98 Oximetry 10/20/21 10/20/21 10/21/21 10:18 20:01 04:04 Temperature 98.8 F Pulse Rate 77 Respiratory 18 16 Rate Blood Pressure 120/59 [Right] O2 Sat by Pulse 99 97 99 Oximetry 10/21/21 10/21/21 10/22/21 07:45 20:28 09:25 Temperature 99.1 F 98.9 F Pulse Rate 95 H 70 78 Respiratory 16 18 20 Rate Blood Pressure 134/79 140/81 124/70 [Right] O2 Sat by Pulse 99 99 100 Oximetry 10/22/21 10/23/21 10/23/21 20:02 13:14 20:00 Temperature 98.4 F 97.8 F Pulse Rate 90 90 Respiratory 16 20 Rate Blood Pressure 128/63 130/86 [Right] O2 Sat by Pulse 100 98 100 Oximetry 10/23/21 10/24/21 10/24/21 20:37 08:07 09:00 Temperature 98.4 F 99.3 F Pulse Rate 91 H 94 H Respiratory 18 16 Rate Blood Pressure 134/71 131/71 [Right] O2 Sat by Pulse 100 96 100 Oximetry 10/24/21 10/25/21 10/25/21 19:30 20:00 21:00 Temperature 98.2 F Pulse Rate 88 Respiratory 18 Rate Blood Pressure 138/78 [Right] O2 Sat by Pulse 100 100 99 Oximetry 10/26/21 10/26/21 10/27/21 09:14 09:16 13:00 Temperature 98.6 F 98.2 F Pulse Rate 70 89 Respiratory 18 20 Rate Blood Pressure 118/53 136/88 [Right] O2 Sat by Pulse 100 96 99 Oximetry 10/28/21 10:14 Temperature 97.2 F L Pulse Rate 81 Respiratory 18 Rate Blood Pressure 92/50 [Right] O2 Sat by Pulse 97 Oximetry Lab Results 10/17/21 10/17/21 10/17/21 Range/Units 17:51 17:51 17:51 WBC 9.7 (4.5-11.0) K/mm3 RBC 3.96 (3.65-5.03) M/mm3 Hgb 12.4 (10.1-14.3) gm/dl Hct 35.6 (30.3-42.9) % MCV 90 (79-97) fl MCH 31 (28-32) pg MCHC 35 H (30-34) % RDW 13.5 (13.2-15.2) % Plt Count 242 (140-440) K/mm3 Lymph % (Auto) Not Reportable [place] % (Auto) Not Reportable Eos % (Auto) Not Reportable Baso % (Auto) Not Reportable Lymph # (Auto) Not Reportable [place] # (Auto) Not Reportable Eos # (Auto) Not Reportable Baso # (Auto) Not Reportable Add Manual Diff Complete Total Counted 100 Seg Neuts % (Manual) 59.0 (40.0-70.0) % Band Neutrophils % 0 % Lymphocytes % (Manual) 34.0 (13.4-35.0) % Reactive Lymphs % (Man) 0 % Monocytes % (Manual) 7.0 (0.0-7.3) % Eosinophils % (Manual) 0 (0.0-4.3) % Basophils % (Manual) 0 (0.0-1.8) % Metamyelocytes % 0 % Myelocytes % 0 % Promyelocytes % 0 % Blast Cells % 0 % Nucleated RBC % Not Reportable Seg Neutrophils # Not Reportable Seg Neutrophils # Man 5.7 (1.8-7.7) K/mm3 Band Neutrophils # 0.0 K/mm3 Lymphocytes # (Manual) 3.3 (1.2-5.4) K/mm3 Abs React Lymphs (Man) 0.0 K/mm3 Monocytes # (Manual) 0.7 (0.0-0.8) K/mm3 Eosinophils # (Manual) 0.0 (0.0-0.4) K/mm3 Basophils # (Manual) 0.0 (0.0-0.1) K/mm3 Metamyelocytes # 0.0 K/mm3 Myelocytes # 0.0 K/mm3 Promyelocytes # 0.0 K/mm3 Blast Cells # 0.0 K/mm3 WBC Morphology Not Reportable Hypersegmented Neuts Not Reportable Hyposegmented Neuts Not Reportable Hypogranular Neuts Not Reportable Smudge Cells Not Reportable Toxic Granulation Not Reportable Toxic Vacuolation Not Reportable Dohle Bodies Not Reportable Pelger-Huet Anomaly Not Reportable Cecy Rods Not Reportable Platelet Estimate Consistent w auto Clumped Platelets Not Reportable Plt Clumps, EDTA Not Reportable Large Platelets Not Reportable Giant Platelets Not Reportable Platelet Satelliting Not Reportable Plt Morphology Comment Not Reportable RBC Morphology Normal Dimorphic RBCs Not Reportable Polychromasia Not Reportable Hypochromasia Not Reportable Poikilocytosis Not Reportable Anisocytosis Not Reportable Microcytosis Not Reportable Macrocytosis Not Reportable Spherocytes Not Reportable Pappenheimer Bodies Not Reportable Sickle Cells Not Reportable Target Cells Not Reportable Tear Drop Cells Not Reportable Ovalocytes Not Reportable Helmet Cells Not Reportable Pollard-Bowen Bodies Not Reportable Pinecrest Rings Not Reportable [place] Cells Not Reportable Bite Cells Not Reportable Crenated Cell Not Reportable Elliptocytes Not Reportable Acanthocytes (Spur) Not Reportable Rouleaux Not Reportable Hemoglobin C Crystals Not Reportable Schistocytes Not Reportable Malaria parasites Not Reportable Vinicio Bodies Not Reportable Hem Pathologist Commnt No Sodium 138 (137-145) mmol/L Potassium 4.0 (3.6-5.0) mmol/L Chloride 103.8 (98-107) mmol/L Carbon Dioxide 22 (22-30) mmol/L Anion Gap 16 mmol/L BUN 11 (7-17) mg/dL Creatinine 1.0 (0.6-1.2) mg/dL Estimated GFR > 60 ml/min BUN/Creatinine Ratio 11 % Glucose 92 (65-100) mg/dL Calcium 9.8 (8.4-10.2) mg/dL Urine Color (Yellow) Urine Turbidity (Clear) Urine pH (5.0-7.0) Ur Specific Hubbell (1.003-1.030) Urine Protein (Negative) mg/dL Urine Glucose (UA) (Negative) mg/dL Urine Ketones (Negative) mg/dL Urine Blood (Negative) Urine Nitrite (Negative) Urine Bilirubin (Negative) Urine Urobilinogen (<2.0) mg/dL Ur Leukocyte Esterase (Negative) Urine WBC (Auto) (0.0-6.0) /HPF Urine RBC (Auto) (0.0-6.0) /HPF U Epithel Cells (Auto) (0-13.0) /HPF Urine Mucus /HPF Salicylates < 0.3 L (2.8-20.0) mg/dL Urine Opiates Screen Urine Methadone Screen Acetaminophen (10.0-30.0) ug/mL Ur Barbiturates Screen Ur Phencyclidine Scrn Ur Amphetamines Screen U Benzodiazepines Scrn Urine Cocaine Screen U Marijuana (THC) Screen Drugs of Abuse Note SARS-CoV-2 (PCR) (Negative) 10/17/21 10/17/21 10/17/21 Range/Units 17:51 Unknown Unknown WBC (4.5-11.0) K/mm3 RBC (3.65-5.03) M/mm3 Hgb (10.1-14.3) gm/dl Hct (30.3-42.9) % MCV (79-97) fl MCH (28-32) pg MCHC (30-34) % RDW (13.2-15.2) % Plt Count (140-440) K/mm3 Lymph % (Auto) [place] % (Auto) Eos % (Auto) Baso % (Auto) Lymph # (Auto) [place] # (Auto) Eos # (Auto) Baso # (Auto) Add Manual Diff Total Counted Seg Neuts % (Manual) (40.0-70.0) % Band Neutrophils % % Lymphocytes % (Manual) (13.4-35.0) % Reactive Lymphs % (Man) % Monocytes % (Manual) (0.0-7.3) % Eosinophils % (Manual) (0.0-4.3) % Basophils % (Manual) (0.0-1.8) % Metamyelocytes % % Myelocytes % % Promyelocytes % % Blast Cells % % Nucleated RBC % Seg Neutrophils # Seg Neutrophils # Man (1.8-7.7) K/mm3 Band Neutrophils # K/mm3 Lymphocytes # (Manual) (1.2-5.4) K/mm3 Abs React Lymphs (Man) K/mm3 Monocytes # (Manual) (0.0-0.8) K/mm3 Eosinophils # (Manual) (0.0-0.4) K/mm3 Basophils # (Manual) (0.0-0.1) K/mm3 Metamyelocytes # K/mm3 Myelocytes # K/mm3 Promyelocytes # K/mm3 Blast Cells # K/mm3 WBC Morphology Hypersegmented Neuts Hyposegmented Neuts Hypogranular Neuts Smudge Cells Toxic Granulation Toxic Vacuolation Dohle Bodies Pelger-Huet Anomaly Cecy Rods Platelet Estimate Clumped Platelets Plt Clumps, EDTA Large Platelets Giant Platelets Platelet Satelliting Plt Morphology Comment RBC Morphology Dimorphic RBCs Polychromasia Hypochromasia Poikilocytosis Anisocytosis Microcytosis Macrocytosis Spherocytes Pappenheimer Bodies Sickle Cells Target Cells Tear Drop Cells Ovalocytes Helmet Cells Pollard-Bowen Bodies [place]st Rings Yoli Cells Bite Cells Crenated Cell Elliptocytes Acanthocytes (Spur) Rouleaux Hemoglobin C Crystals Schistocytes Malaria parasites Vinicio Bodies Hem Pathologist Commnt Sodium (137-145) mmol/L Potassium (3.6-5.0) mmol/L Chloride (98-107) mmol/L Carbon Dioxide (22-30) mmol/L Anion Gap mmol/L BUN (7-17) mg/dL Creatinine (0.6-1.2) mg/dL Estimated GFR ml/min BUN/Creatinine Ratio % Glucose (65-100) mg/dL Calcium (8.4-10.2) mg/dL Urine Color Yellow (Yellow) Urine Turbidity Clear (Clear) Urine pH 5.0 (5.0-7.0) Ur Specific [place]bell 1.021 (1.003-1.030) Urine Protein <15 mg/dl (Negative) mg/dL Urine Glucose (UA) Neg (Negative) mg/dL Urine Ketones Neg (Negative) mg/dL Urine Blood Mod (Negative) Urine Nitrite Neg (Negative) Urine Bilirubin Neg (Negative) Urine Urobilinogen < 2.0 (<2.0) mg/dL Ur Leukocyte Esterase Neg (Negative) Urine WBC (Auto) 1.0 (0.0-6.0) /HPF Urine RBC (Auto) 1.0 (0.0-6.0) /HPF U Epithel Cells (Auto) 5.0 (0-13.0) /HPF Urine Mucus Few /HPF Salicylates (2.8-20.0) mg/dL Urine Opiates Screen Negative Urine Methadone Screen Negative Acetaminophen 5.0 L (10.0-30.0) ug/mL Ur Barbiturates Screen Negative Ur Phencyclidine Scrn Negative Ur Amphetamines Screen Negative U Benzodiazepines Scrn Negative Urine Cocaine Screen Negative U Marijuana (THC) Screen Negative Drugs of Abuse Note Disclamer SARS-CoV-2 (PCR) (Negative) 10/18/21 Range/Units 10:22 WBC (4.5-11.0) K/mm3 RBC (3.65-5.03) M/mm3 Hgb (10.1-14.3) gm/dl Hct (30.3-42.9) % MCV (79-97) fl MCH (28-32) pg MCHC (30-34) % RDW (13.2-15.2) % Plt Count (140-440) K/mm3 Lymph % (Auto) [place] % (Auto) Eos % (Auto) Baso % (Auto) Lymph # (Auto) [place] # (Auto) Eos # (Auto) Baso # (Auto) Add Manual Diff Total Counted Seg Neuts % (Manual) (40.0-70.0) % Band Neutrophils % % Lymphocytes % (Manual) (13.4-35.0) % Reactive Lymphs % (Man) % Monocytes % (Manual) (0.0-7.3) % Eosinophils % (Manual) (0.0-4.3) % Basophils % (Manual) (0.0-1.8) % Metamyelocytes % % Myelocytes % % Promyelocytes % % Blast Cells % % Nucleated RBC % Seg Neutrophils # Seg Neutrophils # Man (1.8-7.7) K/mm3 Band Neutrophils # K/mm3 Lymphocytes # (Manual) (1.2-5.4) K/mm3 Abs React Lymphs (Man) K/mm3 Monocytes # (Manual) (0.0-0.8) K/mm3 Eosinophils # (Manual) (0.0-0.4) K/mm3 Basophils # (Manual) (0.0-0.1) K/mm3 Metamyelocytes # K/mm3 Myelocytes # K/mm3 Promyelocytes # K/mm3 Blast Cells # K/mm3 WBC Morphology Hypersegmented Neuts Hyposegmented Neuts Hypogranular Neuts Smudge Cells Toxic Granulation Toxic Vacuolation Dohle Bodies Pelger-Huet Anomaly Cecy Rods Platelet Estimate Clumped Platelets Plt Clumps, EDTA Large Platelets Giant Platelets Platelet Satelliting Plt Morphology Comment RBC Morphology Dimorphic RBCs Polychromasia Hypochromasia Poikilocytosis Anisocytosis Microcytosis Macrocytosis Spherocytes Pappenheimer Bodies Sickle Cells Target Cells Tear Drop Cells Ovalocytes Helmet Cells Pollard-Bowen Bodies [place] Rings Yoli Cells Bite Cells Crenated Cell Elliptocytes Acanthocytes (Spur) Rouleaux Hemoglobin C Crystals Schistocytes Malaria parasites Vinicio Bodies Hem Pathologist Commnt Sodium (137-145) mmol/L Potassium (3.6-5.0) mmol/L Chloride (98-107) mmol/L Carbon Dioxide (22-30) mmol/L Anion Gap mmol/L BUN (7-17) mg/dL Creatinine (0.6-1.2) mg/dL Estimated GFR ml/min BUN/Creatinine Ratio % Glucose (65-100) mg/dL Calcium (8.4-10.2) mg/dL Urine Color (Yellow) Urine Turbidity (Clear) Urine pH (5.0-7.0) Ur Specific [place] (1.003-1.030) Urine Protein (Negative) mg/dL Urine Glucose (UA) (Negative) mg/dL Urine Ketones (Negative) mg/dL Urine Blood (Negative) Urine Nitrite (Negative) Urine Bilirubin (Negative) Urine Urobilinogen (<2.0) mg/dL Ur Leukocyte Esterase (Negative) Urine WBC (Auto) (0.0-6.0) /HPF Urine RBC (Auto) (0.0-6.0) /HPF U Epithel Cells (Auto) (0-13.0) /HPF Urine Mucus /HPF Salicylates (2.8-20.0) mg/dL Urine Opiates Screen Urine Methadone Screen Acetaminophen (10.0-30.0) ug/mL Ur Barbiturates Screen Ur Phencyclidine Scrn Ur Amphetamines Screen U Benzodiazepines Scrn Urine Cocaine Screen U Marijuana (THC) Screen Drugs of Abuse Note SARS-CoV-2 (PCR) Negative (Negative)
[2021-10-28] MEDS ORDERED: QUEtiapine 100 MG TAB PO SCH ×2 (13:00→22:00)
[2021-10-29 06:02] VITALS: BP 100/57
--- NOTE | 2021-10-29 11:27 | Progress Note ---
Subjective - Reason for Consult Consult date: 10/29/21 Reason for consult: psychosis - Chief Complaint Chief complaint: The patient was seen today. She is no longer in seclusion. She is resting comfortably. She says she is tired and didn't sleep well. The patient says "I just fell asleep at 6 this morning." She says "but I'm doing good." She says "I'm home sick and ready to go back." The patient denies SI/HI. She also denies hallucinations. Will no longer recommend inpatient psych treatment for this patient as I feel that she will not further benefit from inpatient treatment. She has improved significantly and can be managed on an outpatient basis. REVIEW OF SYSTEMS Constitutional: Negative for weight loss ENT: Negative for stridor Respiratory: Negative for cough or hemoptysis All other systems reviewed and are negative MENTAL STATUS EXAMINATION General Appearance and Behavior: Age appropriate, good hygiene, wearing appropriate clothes, fair eye contact, calm, cooperative Cooperation: Cooperative Psychomotor Behavior: Psychomotor normal Mood: good Affect and affective range: congruent with stated mood Thought Process: circumstantial Thought Content: Reality oriented Speech: normal tone and pace Suicidal Ideation: Denies Homicidal Ideation: Denies Hallucinations: Denies Delusions: None elicited Impulse Control: Limited Insight and Judgment: Limited insight and judgment Memory: Limited Attention: attentive Orientation: Alert, oriented Diagnoses Schizophrenia Treatment Plan d/c 1013 Seroquel 150mg po qam, 300mg po qhs Depakote 500mg po TID Zyprexa 10mg po BID Trazodon 75mg po qhs PSYCHOTHERAPY: Supportive psychotherapy provided MEDICAL: Per primary team DELIRIUM PRECAUTIONS: Please re-orient patient frequently, keep lights on during the day, and minimize benzodiazepines and opiates as these medications could worsen patient's confusion. 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 The patient understands that if SI/HI arise she is to seek immediate assistance. The traveling electrician to give all necessary outpatient resource Will sign off. Thank you for the consult. Case staffed with Dr. Desai Mental Status Exam - Vital signs Last Vital Signs Temp 98.1 F 10/29/21 06:01 Pulse 89 10/29/21 06:01 Resp 18 10/29/21 06:01 BP 100/57 10/29/21 06:01 Pulse Ox 100 10/29/21 06:01
--- NOTE | 2021-10-29 12:19 | Event Note ---
Date: 10/29/21 The patient has been here for several days evaluated by psychiatry who has been treating her. She has a history of schizophrenia and came in complaining of suicidal ideations. She is currently not suicidal and is missing home. She will be discharged today. She has remained clinically stable with normal vital signs. No events overnight.
== END 2021-10-29 15:03 | disposition home or self-care (01) ==
LOC: EEVIPCON 14:56 → ED 14:56
DX: R45.851 Suicidal ideations (principal); Z20.822 Contact with and (suspected) exposure to COVID-19; E11.9 Type 2 diabetes mellitus without complications; F17.200 Nicotine dependence, unspecified, uncomplicated; F10.20 Alcohol dependence, uncomplicated
CPT/HCPCS: 36415; 80048; 80307; 81001; 85007; 85025; 96372; 99284; J1200; J2060; J3486; U0003; 80320; G0480